=== PATIENT | male | born 1935 | race Caucasian/White ===

== ENCOUNTER 2022-05-15 15:11 | Observation (INO) | payer MEDICARE, OTHER ==
[2022-05-15 16:19] LABS: ESTIMATED GFR 65 mL/min (>60); TROPONIN I HIGH SENSITIVITY 28.1 pg/mL (<=60.3)
[2022-05-15] MEDS ORDERED: Acetaminophen 325 MG Tab PO PRN (17:28)
[2022-05-15] MEDS ORDERED: Ondansetron 4 MG Tab.DIS PO PRN (17:28)
[2022-05-15] MEDS ORDERED: Acetaminophen/HYDROcodone 325-5 MG Tab PO PRN (17:28)
[2022-05-15] MEDS ORDERED: LORazepam 2 MG/ML SDV IVPUSH PRN (17:28)
[2022-05-15] MEDS ORDERED: Magnesium Hydroxide 400 MG/5 ML Susp 30 ML Cup PO PRN (17:28)
[2022-05-15] MEDS ORDERED: Ondansetron 4 MG/2 ML SDV IV PRN (17:28)
[2022-05-15] MEDS ORDERED: Melatonin 3 MG Tab PO SCH (21:00)
[2022-05-16 02:18] VITALS: PULSE 49
[2022-05-16 06:08] LABS: ESTIMATED GFR 73 mL/min (>60)
[2022-05-16 07:43] VITALS: BP 120/64
[2022-05-16] MEDS ORDERED: Tamsulosin 0.4 MG Cap.ER PO SCH (09:00)
== END 2022-05-16 11:00 | disposition home or self-care (01) ==
LOC: JP.ED 15:11 → JP.MS 17:27
PROVIDERS: ADMIT Hospitalist; ATTEND Internal Medicine
DX: R55 Syncope and collapse (principal); R00.1 Bradycardia, unspecified; I08.8 Other rheumatic multiple valve diseases; Z79.899 Other long term (current) drug therapy; Z20.822 Contact with and (suspected) exposure to COVID-19; Z91.030 Bee allergy status
CPT/HCPCS: 36415; 70450; 80053; 83735; 84484; 85025; 85027; 86140; 93005; 99285; C8929; G0378; U0002

== ENCOUNTER 2024-10-10 15:02 | Emergency (ER) | payer MEDICARE ==
[2024-10-10 15:10] VITALS: BP 133/64; PULSE 66
== END 2024-10-10 16:33 | disposition home or self-care (01) ==
LOC: JP.ED 15:02
DX: J30.2 Other seasonal allergic rhinitis (principal); Z91.030 Bee allergy status; Z79.899 Other long term (current) drug therapy
CPT/HCPCS: 99283; U0002